=== PATIENT | female | born 1965 | race Caucasian/White ===

== ENCOUNTER 2016-11-05 10:34 | Emergency (ER) | payer OTHER ==
[~2016-11-05] VITALS: Ht 157.5 cm; Wt 50.0 kg
[~2016-11-05 10:34] MED LIST: DICY20TA10 PO; HUMA100I3 SQ; HYDR-3580 PO; INSU1INJ5 SQ; ONDA4TAB7 SL; POLYPOW5 PO
[2016-11-05 10:36] VITALS: BP 185/78; PULSE 89; RESP 12; TEMP 97.9; O2SAT 99
[2016-11-05] MEDS ORDERED: COLY4000S PO (11:05)
--- NOTE | 2016-11-05 11:06 | PD ---
HPI Chief Complaint: GI Complaint Time Seen by Provider: 10:59 Travel History International Travel<30 days: No Contact w/Intl Traveler<30days: No Traveled to known affect area: No History of Present Illness HPI 51-year-old type I diabetic here with complaint of constipation. Her last normal bowel movement was approximately one week ago. In the interim, she has been having constipation. Still passing flatus. Some nausea but no vomiting. Patient states she feels bloated and distended. She has been seen at 2 outside hospital emergency departments including blood work and CT scans that have been negative. She was placed on MiraLAX, she took her first dose of this yesterday without bowel movement. She has tried one home enema. [facility] Past Medical History Diabetes: Yes Past Surgical History Cholecystectomy: Yes Other Surgery: Yes (scoliosis surgery) Social History Alcohol Use: No Tobacco Use: Yes Allergies-Medications (Allergen,Severity, Reaction): Coded Allergies: No Known Allergies (Unverified , 11/05/16) Reported Meds & Prescriptions Reported Meds & Active Scripts Active Golytely 236 gm (Polyethylene Glycol/Electrolytes) 4,000 Ml Soln 4,000 Ml PO ONCE Review of Systems Except as stated in HPI: all other systems reviewed are Neg Physical Exam Narrative GENERAL: Well-appearing female in no acute distress SKIN: Warm and dry. HEAD: Normocephalic. EYES: No scleral icterus. No injection or drainage. ENT: Mucous membranes pink and moist. NECK: Supple CARDIOVASCULAR: Regular rate and rhythm. RESPIRATORY: No accessory muscle use. GASTROINTESTINAL: Abdomen soft, non-tender, nondistended. MUSCULOSKELETAL: Normal gait NEUROLOGICAL: Awake and alert. Normal speech. PSYCHIATRIC: Appropriate mood and affect; insight and judgment normal. Data Data Last Documented VS Vital Signs Date Time Temp Pulse Resp B/P Pulse Ox O2 Delivery O2 Flow Rate FiO2 11/05/16 10:36 97.9 89 12 185/78 99 Room Air MDM Medical Decision Making Medical Screen Exam Complete: Yes Emergency Medical Condition: Yes Medical Record Reviewed: Yes Differential Diagnosis 51-year-old female with 1 week of constipation. Exam is consistent with constipation. She does not have any rectal pain to suggest fecal impaction. Her abdominal examination is benign and with her passing flatus and lack of vomiting or distention in addition to have a negative outside emergency department CT within last 48 hours that was negative by suspicion for obstruction is extremely low. Narrative Course Patient will be given GoLYTELY for home. Diagnosis Primary Impression: Constipation Qualified Code: K59.00 - Constipation, unspecified constipation type Referrals: Primary Care Physician as needed Patient Instructions: Constipation (ED), General Instructions Additional Instructions: GoLYTELY as prescribed. 1 cup every hour until you have one to 2 good bowel movements, and then stop. Med/Other Pt SpecificInfo: Prescription(s) given Scripts Peg-Electrolytes (Golytely 236 gm)4,000 Ml Soln4,000 Ml PO ONCE #1 CONTAINER Ref 0 Prov:Radha Rockwell MD 11/05/16 Disposition: 01 DISCHARGE HOME Condition: Stable Radha Rockwell MD Nov 05, 2016 11:06
[2016-11-14] MEDS ORDERED: ATOR20TA15 PO (09:45)
[2016-11-22] MEDS ORDERED: COLA100C3 PO ×2 (09:08→11:58)
[2016-11-22] MEDS ORDERED: LISI10TA3 PO ×2 (09:08→11:58)
[2016-12-02] MEDS ORDERED: LISI10TA3 PO (10:42)
== END 2016-11-05 11:21 | disposition home or self-care (01) ==
LOC: MERGE 10:34 → NEPD 10:34
DX: K59.00 Constipation, unspecified (principal); Z72.0 Tobacco use
CPT/HCPCS: 99283